=== PATIENT | female | born 1955 | race Caucasian/White ===

== ENCOUNTER → 2016-10-07 | Outpatient (CLI) | payer BC | LOC: MAMO 09-18 11:40 | DX: J70.0 Acute pulmonary manifestations due to radiation (principal) | CPT/HCPCS: G0202 ==

== ENCOUNTER → 2020-11-13 | Outpatient (CLI) | payer MEDICARE, OTHER ==
[~2020-11-13] MED LIST: ATORVASTATIN CA10 MG PO; CYCLOBENZAPRINE10 MG PO; DESLORATADINE5 MG PO; DYMISTA NASAL S23 GM; ESTRADIOL1 EAC2 TD; FISH OIL 1,0001 EAC1 PO; HYDROCODON-ACE1 EAC2 PO; METHOCARBAMOL500 MG PO; NABUMETONE500 MG PO; NORVASC 5 MG TAB5 MG PO; PANTOPRAZOLE SO40 MG PO; TYLENOL325 M1 PO; VITAMIN D3125 MCG PO; ZANAFLEX 4 MG TA4 MG PO; ZESTRIL40 MG PO
== END ==
LOC: RAD 12:57
DX: M79.641 Pain in right hand (principal)
CPT/HCPCS: 73110; 73130

== ENCOUNTER → 2021-05-14 | Outpatient (CLI) | payer MEDICARE, OTHER ==
[2021-05-14 11:07] LABS: HEMOGLOBIN 13.1 gm/dl (12.3-15.3); RED BLOOD COUNT 4.31 M/UL (4.00-5.10); WHITE BLOOD COUNT 5.6 K/UL (4.5-11.0)
[2021-05-14 11:28] LABS: BUN/CREATININE RATIO 16 (0-10)
== END ==
LOC: LAB 10:30
PROVIDERS: Internal Medicine
DX: E78.5 Hyperlipidemia, unspecified (principal); I10 Essential (primary) hypertension; Z79.899 Other long term (current) drug therapy
CPT/HCPCS: 36415; 80053; 80061; 84439; 84443; 85025

== ENCOUNTER → 2021-11-11 | Outpatient (CLI) | payer MEDICARE, OTHER ==
[2021-11-11 09:48] LABS: HEMOGLOBIN 12.9 gm/dl (12.3-15.3); RED BLOOD COUNT 4.24 M/UL (4.00-5.10)
[2021-11-11 10:08] LABS: BUN/CREATININE RATIO 19 (0-10)
== END ==
LOC: LAB 09:28
PROVIDERS: Internal Medicine
DX: E78.5 Hyperlipidemia, unspecified (principal); I10 Essential (primary) hypertension; R73.01 Impaired fasting glucose; E55.9 Vitamin D deficiency, unspecified; Z79.899 Other long term (current) drug therapy
CPT/HCPCS: 36415; 80053; 80061; 83036; 84439; 84443; 85025

== ENCOUNTER 2021-11-25 17:13 | Emergency (ER) | payer MEDICARE, OTHER ==
[2021-11-25 18:48] LABS: HEMOGLOBIN 12.7 gm/dl (12.3-15.3); RED BLOOD COUNT 4.14 M/UL (4.00-5.10); WHITE BLOOD COUNT 7.4 K/UL (4.5-11.0)
[2021-11-25 19:19] LABS: BUN/CREATININE RATIO 19 (0-10)
[2021-11-25] MEDS ORDERED: NITROSTAT 0.4100 TAB SL (22:03)
[2021-11-25] MEDS ORDERED: ASPIRIN CHEWABL81 MG PO (22:03)
== END 2021-11-25 22:20 | disposition home or self-care (01) ==
LOC: ER1 17:13
PROVIDERS: Emergency Medicine
DX: R07.89 Other chest pain (principal); I10 Essential (primary) hypertension; E78.5 Hyperlipidemia, unspecified; Z20.822 Contact with and (suspected) exposure to COVID-19
CPT/HCPCS: 71045; 80053; 82550; 82553; 84484; 85025; 93005; 99285; U0002